=== PATIENT | male | born 2000 | race Caucasian/White ===

== ENCOUNTER 2023-01-14 18:21 | Emergency (ER) | payer MEDICAID ==
[~2023-01-14] VITALS: Ht 177.8 cm; Wt 118.2 kg
[2023-01-14 19:00] VITALS: BP 128/64; PULSE 88; TEMP 97.2
[2023-01-17] MEDS ORDERED: CEPHALEXIN500 M1 PO ×3 (12:31→14:14)
== END 2023-01-14 19:02 | disposition home or self-care (01) ==
LOC: COL.ER 18:21
DX: S61.217A Laceration without foreign body of left little finger without damage to nail, initial encounter (principal); Z28.310 Unvaccinated for COVID-19; Z23 Encounter for immunization; W26.8XXA Contact with other sharp object(s), not elsewhere classified, initial encounter

== ENCOUNTER 2023-01-16 21:58 | Emergency (ER) | payer MEDICAID ==
[~2023-01-16] VITALS: Ht 177.8 cm; Wt 122.7 kg
[2023-01-16 22:09] VITALS: TEMP 97.1
[2023-01-16] MEDS ORDERED: CEPHALEXIN500 M1 PO ×3 (22:48→22:51)
[2023-01-16 22:57] VITALS: BP 115/82; PULSE 94
[2023-01-17] MEDS ORDERED: CEPHALEXIN500 M1 PO ×3 (12:31→14:14)
== END 2023-01-16 22:57 | disposition home or self-care (01) ==
LOC: COL.ER 21:58
DX: S61.216D Laceration without foreign body of right little finger without damage to nail, subsequent encounter (principal); Z28.310 Unvaccinated for COVID-19; W27.4XXD Contact with kitchen utensil, subsequent encounter